=== PATIENT | female | born 1980 | race Caucasian/White ===

== ENCOUNTER → 2018-08-07 09:57 | Outpatient (CLI) | payer BC, SELFPAY ==
--- NOTE | 2018-08-07 10:07 | US_ITS ---
US transvaginal HISTORY: ITS.REASON: US T/V- Heavy Bleeding Fibroids ORDERING PHYSICIAN: Arsenio Oneill MD PATIENT AGE: 38 years Comparison: 10/26/2015 FINDINGS: The uterus measures 10 x 5 x 6 cm with a combined endometrial thickness of 13 mm. There is a small hyperechoic focus in the endometrium superiorly at 9 x 5 mm possibly due to a polyp. There is a 1 cm area of isoechogenicity along the fundus of the uterus consistent with a small fibroid. There is a left ovarian cyst at 16 x 14 mm. There is a large right ovarian cyst at 6 x 5.5 cm and a smaller ovarian cyst on the right at 2 cm. Blood flow is present within the right ovary. No cul-de-sac fluid evident. IMPRESSION: Slightly enlarged uterus with thickened endometrium with possible endometrial polyp and 1 cm uterine fibroid 6 cm simple right ovarian cyst. Recommend follow-up to confirm resolution
== END ==
PROVIDERS: PCP Internal Medicine; Visit Provider Nurse Practitioner Obstetrics & Gynecology
DX: D21.9 Benign neoplasm of connective and other soft tissue, unspecified (principal); N92.0 Excessive and frequent menstruation with regular cycle
CPT/HCPCS: 76830

== ENCOUNTER → 2018-11-05 12:41 | Outpatient (CLI) | payer BC, SELFPAY ==
--- NOTE | 2018-11-05 12:45 | US_ITS ---
US transvaginal HISTORY: ITS.REASON: US T/V- f/u on ovarian cyst ORDERING PHYSICIAN: Arsenio Oneill MD PATIENT AGE: 38 years Comparison: None FINDINGS: Uterus is 9.5 x 4.5 x 5.7 cm. Right ovary is 7.6 x 5.2 x 7.0 cm. Left ovary is 3.2 x 1.9 x 1.6 cm. Endometrial thickness is 1.4 cm. There is no cul-de-sac fluid. There is a subtle hypoechoic focus at the myometrium at the uterine fundus and this measures 1.2 cm without shadowing or acoustic enhancement. Right ovary shows several anechoic foci, largest is 4.6 cm with distal acoustic enhancement and smooth blakely. The smaller lesion measuring 2.3 cm has some internal echoes also with distal acoustic enhancement. There is another right ovarian lesion measuring 2.7 cm. Impression: Possible small uterine fibroid. Several prominent right ovarian cysts, one of which may become chronic hemorrhagic cyst. Because of size suggest follow-up in 6-8 weeks.
== END ==
PROVIDERS: PCP Internal Medicine; Visit Provider Nurse Practitioner Obstetrics & Gynecology
DX: N83.201 Unspecified ovarian cyst, right side (principal)
CPT/HCPCS: 76830

== ENCOUNTER → 2018-11-23 10:52 | Outpatient (CLI) | payer BC, SELFPAY ==
[2018-11-23 11:19] LABS: Basophils # 0.1 K/mm3 (0-0.2); Basophils % 0.8 % (0.1-2.0); Eosinophils # 0.2 K/mm3 (0.0-0.4); Eosinophils % 3.1 % (0.1-12.0); Hematocrit 44.5 % (37.0-47.0); Hemoglobin 14.4 g/dL (12.2-16.2); Lymphocytes # 2.5 K/mm3 (0.7-4.5); Lymphocytes % 37.4 % (10-50); Mean Corpuscular HGB Conc 32.3 g/dL (31.8-35.4); Mean Corpuscular Hemoglobin 27.9 pg (27.0-31.2); Mean Corpuscular Volume 86.4 fl (81-99); Mean Platelet Volume 6.8 fl (7.4-10.4); Monocytes # 0.5 K/mm3 (0.1-1.0); Monocytes % 7.2 % (1.7-9.3); Neutrophils # 3.4 K/mm3 (1.8-7.8); Neutrophils % 51.4 % (37.0-80.0); Platelet Count 340 K/mm3 (142-424); Red Blood Count 5.15 M/mm3 (4.20-5.40); Red Cell Distribution Width 13.1 % (11.5-17.5); White Blood Count 6.6 K/mm3 (4.8-10.8)
[2018-11-23 11:24] LABS: Urine Pregnancy, HCG Qual. Negative (Negative)
[2018-11-23 15:45] LABS: Free Thyroxine Index 2.4 ug/dL (5.93-13.13); T4 (Thyroxine) 7.4 ug/dl (4.7-13.3); Thyroid Stimulating Hormone 4.46 uIU/ml (0.358-3.740); Triiodothryronine (T3) Uptake 33 % (31-39)
== END ==
PROVIDERS: Visit Provider Nurse Practitioner Obstetrics & Gynecology
DX: N92.0 Excessive and frequent menstruation with regular cycle (principal); N94.6 Dysmenorrhea, unspecified
CPT/HCPCS: 36415; 81025; 84436; 84443; 84479; 85025

== ENCOUNTER 2020-05-20 19:01 | Emergency (ER) | payer BC, OTHER, SELFPAY ==
[2020-05-20 19:01] VITALS: BP 160/109; PULSE 114; RESP 21; TEMP 36.7; O2SAT 97; BMI 33.0
--- NOTE | 2020-05-20 19:02 | XR_ITS ---
PROCEDURE: XR KNEE LT 3V CLINICAL INDICATION: fall Posttraumatic pain COMPARISON: CR [id number] KNEE-3 VIEWS-RT from 11/20/[address] KNEE LT WO CON from 05/20/2020 FINDINGS: There are mild osteoarthritic changes of the knee. There is a fluid level suspected on the cross-table lateral view. A mixed sclerotic and lytic lesion is present involving the metaphyseal diaphyseal region with probably benign features measuring 5.9 x 2 cm. Other findings:None. IMPRESSION: Mild osteoarthritis. Fat fluid level in the suprapatellar region suggesting occult fracture. Consider CT for further evaluation. Probably benign mixed lytic and sclerotic lesion of the distal femur laterally at the metaphyseal diaphyseal junction Dictated by: Mert Jimenez MD 05/21/2020 06:22 Mert Jimenez MD in [place] 05/21/2020 06:22
--- NOTE | 2020-05-20 19:02 | XR_ITS ---
PROCEDURE: XR WRIST RT MIN 3V CLINICAL INDICATION: fall Posttraumatic pain COMPARISON: No exams were available for comparison FINDINGS: Nondisplaced fracture involves the base of the ulnar styloid process. There is an additional nondisplaced fracture longitudinal in nature suspected at the distal radius with intra-articular involvement and with buckling of the distal dorsal cortex of the radius. IMPRESSION: Nondisplaced distal radial and ulnar fractures. Dictated by: Mert Jimenez MD 05/21/2020 06:17 Mert Jimenez MD in [place] 05/21/2020 06:17
--- NOTE | 2020-05-20 19:03 | HMH.EDGENADL ---
ED Disposition Condition on Discharge: Fair Time of Disposition: 20:09 - Critical Care Critical Care Time: No <Yvonne Carroll - Last Filed: 05/20/20 20:07> <Kwame Lynch - Last Filed: 05/20/20 21:26> Clinical Impression: Fall Qualifiers: Encounter type: initial encounter Qualified Code(s): W19.XXXA - Unspecified fall, initial encounter Right distal ulnar fracture Qualifiers: Encounter type: initial encounter Fracture type: closed Fracture morphology: other fracture Qualified Code(s): S52.691A - Other fracture of lower end of right ulna, initial encounter for closed fracture Left knee sprain Qualifiers: Encounter type: initial encounter Involved ligament of knee: other ligament Qualified Code(s): S83.8X2A - Sprain of other specified parts of left knee, initial encounter Patellar fracture Qualifiers: Encounter type: initial encounter Fracture type: closed Fracture morphology: unspecified fracture morphology Fracture alignment: nondisplaced Laterality: left Qualified Code(s): S82.002A - Unspecified fracture of left patella, initial encounter for closed fracture Disposition: Home, Self-Care Instructions: DI for Wrist Fracture Additional Instructions: You have been evaluated for fall, wrist fracture and knee sprain. Please keep splint in place until you follow-up with orthopedics. Take Tylenol and ibuprofen for pain. Take [place] for extreme pain. Return to the emergency department if you have any worsening symptoms or numbness, weakness, tingling in your right hand or left foot. Prescriptions: Hydrocodone/Acetaminophen [Hydrocodone-Acetamin 5-325 mg] 1 tab PO Q6 PRN 3 Days #12 tab PRN Reason: Severe Pain Transmission Status: Received by [id number] Referrals: PCP,No [Non-Staff] - Gama De La Rosa MD [Staff Physician] - Attestation: On 05/20/20, the high probability of a clinically significant, sudden or life threatening deterioration of the following system(s) required my full and direct attention, intervention and personal management. The time I documented below is in addition to time spent performing reported procedures but includes the following listed in this critical care notation. Medical Decision Making - Medical Records Medical records reviewed: Yes: I reviewed the patient's medical records. - Maxi Inquiry Pt receiving controlled substance: No <Yvonne Carroll - Last Filed: 05/20/20 20:07> - Radiology Data #1 Image(s): Wrist, Knee Image Reviewed: Yes I reviewed the patient's radiology image Preliminary Findings: Abnormal (fx seen) - CT Data CT Scan: Other (knee) Time Received: 21:[address] Reviewed: Yes: I have viewed the radiologist's interpretation Preliminary Findings: Abnormal (fx patellar ) <Kwame Lynch - Last Filed: 05/20/20 21:26> Vital Signs: 05/20/20 19:01 05/20/20 19:30 05/20/20 20:00 Temperature 98.0 F Temperature Source Oral Pulse Rate [Left Radial] 114 H 117 H 113 H Respiratory Rate 21 22 20 Blood Pressure [Left Arm] 160/109 H 136/91 H 146/98 H Blood Pressure Mean [Left Arm] 126 106 114 Blood Pressure Source [Left Arm] Automatic Cuff Automatic Cuff Automatic Cuff Blood Pressure Position [Left Arm] Supine Supine Supine 02 Sat by Pulse Oximetry 97 94 L 95 Oxygen Delivery Method Room Air Room Air Room Air Orders (Tests/Meds): ED MEDICATIONS Discontinued Medications Generic Name Dose Route Start Last Admin Trade Name Freq PRN Reason Stop Dose Admin Hydrocodone Bitart/Acetaminophen 1 tab 05/20/20 19:26 05/20/20 19:28 Hydrocodone/Apap 5/325 Mg Tablet PO 05/20/20 19:27 Not Given ONCE ONE Oxycodone HCl 5 mg 05/20/20 19:09 05/20/20 19:28 Oxycodone 5mg Immediate Release Tablet PO 05/20/20 19:10 Not Given ONCE ONE Oxycodone/Acetaminophen 1 each 05/20/20 19:27 05/20/20 19:28 Oxycodone 5mg W/Apap 325mg Tablet PO 05/20/20 19:28 1 each ONCE ONE Administration ORDERS Category Date Time Status CT kn
[2020-05-20 19:30] VITALS: BP 136/91; PULSE 117; RESP 22; O2SAT 94
[2020-05-20 20:00] VITALS: BP 146/98; PULSE 113; RESP 20; O2SAT 95
--- NOTE | 2020-05-20 20:00 | CT_ITS ---
PROCEDURE: CT KNEE LT WO CON CLINICAL HISTORY: fall, knee effusion Posttraumatic pain with fat fluid level, evaluate for occult fracture COMPARISON: No exams were available for comparison TECHNIQUE: Axial images obtained with sagittal and coronal reformats. All CT scans at the facility use one or more dose reduction, viz: automated exposure control, ma/kV adjustment per patient size (including targeted exams where dose is matched to indication, i.e. head), or iterative reconstruction technique. FINDINGS: Avulsion fracture involves the medial aspect of the patella. The avulsed medial fracture fragment is slightly displaced posteriorly by approximately 8-9 mm. There is mild lateral patellar subluxation. Soft tissue edema is noted in the region of the medial patellofemoral ligament. Hemarthrosis is noted. In addition, there is a small calcific density along the lateral aspect of the knee joint effusion suggesting a loose body. Osteoarthritic changes are present involving all 3 compartments. There is a mixed lytic and sclerotic lesion eccentrically located within the lateral femoral metaphyseal diaphyseal junction. This is well-circumscribed measuring 5 cm cephalad caudad and 2.2 cm transverse. There is mild edema in Hoffa's fat pad and mild subcutaneous edema noted. IMPRESSION: 1. Avulsion fracture of the medial aspect of the patella with lateral patellar subluxation and with hemarthrosis noted. 2. Edema along the medial patellofemoral ligament which could be related to ligamentous injury. 3. Osteoarthritic change. 4. Mixed sclerotic and lytic bone lesion of the distal femur at the diaphyseal metaphyseal junction having benign features. Follow-up suggested to confirm stability. Dictated by: Mert Jimenez MD 05/21/2020 09:11 Mert Jimenez MD in [place] 05/21/2020 09:11
--- NOTE | 2020-05-20 20:04 | XR_ITS ---
PROCEDURE: XR FOREARM RT 2V CLINICAL INDICATION: fall Posttraumatic pain COMPARISON: CR XR WRIST RT MIN 3V from 05/20/2020 FINDINGS: Nondisplaced fracture involves the base of ulnar styloid process. There also appears be a nondisplaced fracture involving the distal aspect of the radius longitudinal in nature with intra-articular extension along with buckling of the dorsal cortex of the distal radius.. The proximal mid aspect of the radius and ulna have an unremarkable appearance The joint spaces are well-preserved. No significant degenerative/arthritic changes. No erosive changes evident. Other findings:None. IMPRESSION: Nondisplaced distal radial and ulnar fractures Dictated by: Mert Jimenez MD 05/21/2020 06:15 Mert Jimenez MD in [place] 05/21/2020 06:15
[2020-05-20 20:37] VITALS: BP 135/79; PULSE 101; RESP 20; TEMP 36.6; O2SAT 97
--- NOTE | 2020-05-20 22:28 | PC.NURSE ---
Splint placed to lower forearm per Dr Chambers instructions, pt tolerated well
== END 2020-05-20 21:00 | disposition home or self-care (01) ==
PROVIDERS: Emergency Provider Emergency Medicine; PCP Internal Medicine
DX: S82.002A Unspecified fracture of left patella, initial encounter for closed fracture (principal); S52.691A Other fracture of lower end of right ulna, initial encounter for closed fracture; S52.501A Unspecified fracture of the lower end of right radius, initial encounter for closed fracture; W01.0XXA Fall on same level from slipping, tripping and stumbling without subsequent striking against object, initial encounter; Y92.010 Kitchen of single-family (private) house as the place of occurrence of the external cause
CPT/HCPCS: 29125; 73090; 73110; 73562; 73700; 99283

== ENCOUNTER → 2020-05-22 16:40 | Outpatient (CLI) | payer BC, OTHER, SELFPAY ==
--- NOTE | 2020-05-22 16:40 | MR_ITS ---
PROCEDURE: MR KNEE LT WO CON CLINICAL INDICATION: left patella fx, patellofemoral ligament injury Some small scar she COMPARISON: CT CT KNEE LT WO CON from 05/20/2020 TECHNIQUE: Routine multiplanar multi echo sequences are performed without gadolinium enhancement. FINDINGS: The cruciate ligaments are intact. No meniscal tear is evident. The collateral ligaments appear intact. The patellar tendon and quadriceps tendon also appear intact. There is a large knee joint effusion. There is avulsion fracture of the medial aspect of the patella. This is well demonstrated on the CT scan of 05/20/2020. The patella is subluxed laterally. There is disruption of the medial patellar femoral ligament at its patellar insertion. There is increased T2 signal along the lateral aspect of the distal femur which could be due to patellar dislocation with impaction injury. Osteoarthritic changes are present at the medial lateral compartment and there is some spurring of the posterior aspect of the patella. There is minimal thinning of the patellar cartilage. There is a mixed lytic and sclerotic lesion of the distal femur at the diaphyseal metaphyseal junction laterally. This is not well delineated by MRI. There is some cystic change at this region with a cystic area measuring 8 mm with some sclerosis also noted with some intramedullary fat present as well. This is better delineated by CT. There is generalized subcutaneous edema IMPRESSION: 1. There is tear the medial patellofemoral ligament with lateral subluxation of the patella. Prior avulsion injury noted involving the medial aspect of the patella. 2. Bone marrow edema of the lateral aspect of the lateral femoral condyle and may be due to prior impaction injury from patellar dislocation 3. Large knee joint effusion. 4. Possibly benign lesion of the distal femur better delineated with CT. Follow-up CT suggested for confirmation of stability Dictated by: Mert Jimenez MD 05/23/2020 12:46 Mert Jimenez MD in [place] 05/23/2020 12:46
== END ==
PROVIDERS: PCP Internal Medicine; Visit Provider Orthopaedic Surgery
DX: S52.691A Other fracture of lower end of right ulna, initial encounter for closed fracture (principal); W19.XXXA Unspecified fall, initial encounter
CPT/HCPCS: 73721

== ENCOUNTER → 2020-05-26 12:23 | Outpatient (CLI) | payer BC, SELFPAY ==
--- NOTE | 2020-05-26 12:27 | XR_ITS ---
PROCEDURE: XR WRIST RT MIN 3V CLINICAL INDICATION: right wrist fx, fu in cast Follow-up fracture COMPARISON: CR XR WRIST RT MIN 3V from 05/20/2020 CR XR FOREARM RT 2V from 05/20/2020 FINDINGS: Cast has been placed. There is good alignment of the nondisplaced fracture involving the ulnar styloid process and the distal radius. The joint spaces are well-preserved. No significant degenerative/arthritic changes. No erosive changes evident. Other findings:None. IMPRESSION: Good alignment status post cast placement distal radial and ulnar fractures Dictated by: Mert Jimenez MD 05/26/2020 18:42 Mert Jimenez MD in [place] 05/26/2020 18:42
== END ==
PROVIDERS: PCP Internal Medicine; Visit Provider Orthopaedic Surgery
DX: S52.601A Unspecified fracture of lower end of right ulna, initial encounter for closed fracture (principal)
CPT/HCPCS: 73110

== ENCOUNTER → 2020-05-26 14:31 | Outpatient (CLI) | payer BC, OTHER, SELFPAY ==
[2020-05-26 15:18] LABS: Basophils # 0.1 K/mm3 (0-0.2); Basophils % 0.7 % (0.1-2.0); Eosinophils # 0.3 K/mm3 (0.0-0.4); Hematocrit 49.5 % (37.0-47.0); Hemoglobin 16.4 g/dL (12.2-16.2); Lymphocytes # 2.2 K/mm3 (0.7-4.5); Mean Corpuscular HGB Conc 33.1 g/dL (31.8-35.4); Mean Corpuscular Hemoglobin 31.6 pg (27.0-31.2); Mean Corpuscular Volume 95.5 fl (81-99); Mean Platelet Volume 7.8 fl (7.4-10.4); Monocytes # 0.3 K/mm3 (0.1-1.0); Monocytes % 5.2 % (1.7-9.3); Neutrophils # 3.7 K/mm3 (1.8-7.8); Neutrophils % 57.1 % (37.0-80.0); Platelet Count 298 K/mm3 (142-424); Red Blood Count 5.19 M/mm3 (4.20-5.40); Red Cell Distribution Width 13.7 % (11.5-17.5); White Blood Count 6.5 K/mm3 (4.8-10.8)
[2020-05-26 16:02] LABS: Alanine Aminotransferase 33 U/L (12-78); Albumin Level 4.3 g/dl (3.5-5.0); Alkaline Phosphatase 99 U/L (38-126); Anion Gap 14.6 mEq/L (5-15); Aspartate Amino Transferase 27 U/L (14-36); Bilirubin,Total 0.6 mg/dl (0.2-1.3); Blood Urea Nitrogen 16 mg/dl (7-17); Calcium 10.1 mg/dl (8.4-10.2); Carbon Dioxide 24 mmol/L (22.0-30.0); Chloride 98 mmol/L (98-107); Estimated Glomerular Filt Rate 79 ml/min (>60); GFR (African American) 96 ML/MIN (>60); Potassium 4.6 mmoL/L (3.5-5.1); Sodium 132 mmol/L (136-145)
[2020-05-26 16:04] LABS: Albumin/Globulin Ratio 1.3 (1.1-1.8); Globulin 3.3 g/dL (1.3-3.2); Total Protein,Serum 7.6 g/dl (6.3-8.2)
[2020-05-26 16:11] LABS: Glucose 506 mg/dl (74-100)
[2020-05-26 16:14] LABS: Coronavirus 19 IgG Antibody Negative (Negative); Coronavirus 19 IgM Antibody Negative (Negative)
[2020-05-27 10:46] LABS: Hemoglobin A1C 12.1 % (4.0-6.0)
== END ==
PROVIDERS: Visit Provider Orthopaedic Surgery
DX: Z01.812 Encounter for preprocedural laboratory examination (principal); Z11.52 Encounter for screening for COVID-19; S52.601A Unspecified fracture of lower end of right ulna, initial encounter for closed fracture
CPT/HCPCS: 36415; 80053; 83036; 85025; 86328

== ENCOUNTER → 2020-05-30 12:35 | Outpatient (CLI) | payer BC, SELFPAY ==
[2020-05-30 15:09] LABS: Coronavirus 19 IgG Antibody Negative (Negative); Coronavirus 19 IgM Antibody Negative (Negative)
[2020-06-01 09:02] LABS: HCG Qualitative, Serum Negative (Negative)
== END ==
PROVIDERS: Visit Provider Orthopaedic Surgery
DX: Z01.812 Encounter for preprocedural laboratory examination (principal); Z11.52 Encounter for screening for COVID-19; S82.002A Unspecified fracture of left patella, initial encounter for closed fracture; S76.112A Strain of left quadriceps muscle, fascia and tendon, initial encounter; W19.XXXA Unspecified fall, initial encounter
CPT/HCPCS: 36415; 84703; 86328

== ENCOUNTER 2020-06-01 07:29 | Day surgery (SDC) | payer BC, OTHER, SELFPAY ==
[2020-05-26 10:16] VITALS: BMI 33.0
[2020-06-01] VITALS (15 sets, daily range): BP systolic 109–158; BP diastolic 64–98; PULSE 92–119; RESP 10–18; TEMP 36.6–43; O2SAT 92–99
[2020-06-01 07:59] LABS: POC Glucose,Bedside 213 (70-110)
--- NOTE | 2020-06-01 08:02 | P.PN_ITS ---
[facility] Anesthesia Checklist - Structural Data Admitted From: Home Planned Operative Procedure/s: knee arthro Consent for Planned Operative Procedure(s) Verified: Yes - Additional verifications Anesthesia Reactions: No Hx Blood Transfusions: No Blood Transfusion Reaction: No - Airway Assessment C-Spine Mobility Assessed: Yes TMJ Mobility Assessed: Yes Dentition: Poor Dentition - Neurological Assessment Level of Consciousness: Awake, Alert, Appropriate - Anesthesia Plan Anesthesia Risk discussed: Yes Anesthesia Plan: Verified ASA Class: III Anesthesia Type: General [facility] History I have reviewed the patient's past medical history: Yes Medical History: Denies:: Cancer, Diabetes Mellitus Type 1, Diabetes Mellitus Type 2, Internal Pacemaker, MRSA, Seizures *Have you ever received a pneumonia vaccine?: No *Have you received a flu vaccine this season?: No Other Medical History: Denies: Blood Transfusion Reaction Anesthesia experience/problems:: none Laterality Cases: Right: Arthroscopy Knee Other Surgeries: Yes: , Tubal Ligation. No: Pacemaker Amputation: No Fractures: No - *Social History Last grade of school completed: High school graduate Smoking Status: Never smoker # Packs/Day (cigarettes): 1 Alcohol Intake: never Alcohol Intake Frequency:: holidays/special occasions only Substance Use Type: denies use *Occupational Status:: employed Housing: house Household Members: family *Travel in the last 8 weeks: Inside the [place] Family Hx:: Cancer, Diabetes, Hypertension DISTRIBUTION MANAGER history: Tubal Ligation
[2020-06-01 08:14] LABS: Anion Gap 15.5 mEq/L (5-15); Blood Urea Nitrogen 17 mg/dl (7-17); Calcium 9.7 mg/dl (8.4-10.2); Carbon Dioxide 23 mmol/L (22.0-30.0); Chloride 105 mmol/L (98-107); Creatinine Clearance Estimated 174 mL/min (50-200); Estimated Glomerular Filt Rate 92 ml/min (>60); GFR (African American) 112 ML/MIN (>60); Glucose 230 mg/dl (74-100); Potassium 4.5 mmoL/L (3.5-5.1); Sodium 139 mmol/L (136-145)
--- NOTE | 2020-06-01 12:19 | HMH.ANESI ---
[facility] Anesthesia Record Part I Intake, IV Amount: 1,800 Estimated blood loss (mL): 5 Urine output (mL): 0 Blood Pressure: 109/87 SaO2: 99 Pulse Rate: 98 Respiratory Rate: 10 Temperature: 98.7 F Patient is:: Awake, Stable Stable to PACU at:: 12:10
[2020-06-01 12:33] LABS: POC Glucose,Bedside 254 (70-110)
--- NOTE | 2020-06-01 13:23 | PC.NURSE ---
1219-pt becoming more awake at this time, breathing effort improving, O2 sats stable on 8L via simple mask, ls becoming more clear, vss, will continue to monitor 1224-checked fsbs with results of 254, notified MEAGHAN Jung, no further orders given at this time
--- NOTE | 2020-06-01 13:31 | PC.NURSE ---
1237-pt reports c/o nausea after being medicated for pain-med per eMAR with Zofran 4mg IVP, placed cool washcloths on forehead, will continue to monitor. Ancef 1gm IVPB started infusing at this time for additional dose as ordered per Dr. De La Rosa. 1250-Pt dozing off to sleep, will arouse with verbal stimuli, reports pain easing and rates 4-5/10 unless moving around, pt reports nausea is easing a little at this time, no vomiting noted, vss, pt stable, detailed report called to TanyaRN 1257-pt transported to post op via stretcher w/sheila rails up, pt left in care of MICHAEL Castillo-detailed report given at bedside, upon transfer pt's nausea worsened-attempted sarah mist to ease nause w/out sucess, notified MEAGHAN Jung who ordered for patient to have once time dose phenergan 12.5mg IVPB, notified MICHAEL Castilol of of new orders who will be assuming care of pt at this time, pt's vss, pt stable
--- NOTE | 2020-06-01 20:02 | HMH.OPNOTE ---
Date of procedure: 06/01/20 Pre-op Diagnosis:: 1. Avulsion fracture medial patella, LEFT knee 2. MPFL and medial retinacular tear, LEFT knee 3. Osteoarthritis, LEFT knee Post-op Diagnosis:: 1. Avulsion fracture medial edge of patella, LEFT knee 2. MPFL and medial retinacular tear, LEFT knee 3. Osteoarthritis, LEFT knee 4. Degenerate letter meniscal tear, LEFT knee Procedure performed:: 1. Examination of LEFT knee under anesthesia 2. Partial lateral meniscectomy, LEFT knee 3. Chondroplasty, LEFT knee 4. Arthroscopic microfracture, lateral femoral condyle, LEFT knee 5. Open repair of medial patellofemoral ligament and medial retinaculum, LEFT knee Surgeon:: Gama De La Rosa MD Art Model(s):: Alexa Hoover LEGAL RECORDS MANAGER:: Lee Frazier Anesthesia: LMA Estimated blood loss (mL): 5 Clinical Note:: The patient is a 40-year-old female with left knee injury sustained when she slipped and fell in the house landing on her right wrist and twisting/hitting her left knee on the floor. She is being treated nonoperatively for her right distal radius fracture. She states she previously dislocated her left patella about 6-7 years ago and was treated non operatively in a brace and physical therapy. She has history of psoriasis and psoriatic arthritis. She says she had intra-articular injections into the knee a couple of times with the last injection being over a year ago. CT scan of the knee showed - 1. Avulsion fracture of the medial aspect of the patella with lateral patellar subluxation and with hemarthrosis noted. 2. Edema along the medial patellofemoral ligament which could be related to ligamentous injury. 3. Osteoarthritic change. 4. Mixed sclerotic and lytic bone lesion of the distal femur at the diaphyseal metaphyseal junction having benign features. Follow-up suggested to confirm stability. MRI scan of the knee showed- IMPRESSION: 1. There is tear the medial patellofemoral ligament with lateral subluxation of the patella. Prior avulsion injury noted involving the medial aspect of the patella. 2. Bone marrow edema of the lateral aspect of the lateral femoral condyle and may be due to prior impaction injury from patellar dislocation 3. Large knee joint effusion. 4. Possibly benign lesion of the distal femur better delineated with CT. Follow-up CT suggested for confirmation of stability Clinically her symptoms are consistent with the above diagnosis. The surgical options discussed for her knee including left knee arthroscopy, repair of the medial patellofemoral ligament and medial patellar retinaculum with removal/fixation of the avulsed bone fragments as appropriate at the time of surgery.the surgery is indicated to relieve the pain and improve function of the knee. Patient wished to proceed with the surgery as discussed. Please refer to my office notes for full details. Operative findings:: Examination of the left knee under anesthesia, showed a stable knee joint. There is moderate amount of hemarthrosis. Knee range of motion is from 0-110? of flexion. Operative findings showed diffuse grade 2 degenerative changes over the patellofemoral compartment. In addition, focal grade 4 changes were noted over the lateral aspect of the trochlea. There is a lateral meniscal tear involving the body and posterior horn. The medial and lateral compartment articular surfaces are relatively well preserved. Avulsion fracture of the medial edge of the patella was noted with lateral subluxation of the patella. The medial meniscus is noted to be intact.The anterior cruciate ligament and posterior cruciate ligaments are intact. No loose bodies were noted. Moderate synovitis was noted in the knee. Operative note:: On the day of the procedure the patient was met in the preoperative area and positively identified. A physical examination was performed and documented. The operative site and side was marked and initialed by me. I again discussed the diagnosis, management
--- NOTE | 2020-06-04 10:41 | P.PN_ITS ---
[facility] Anesthesia Record Part II Discharge Time: 12:40 [facility] nurse assessment reviewed?: Yes Patient Condition:: Good Anesthesia Complications:: None Swallowing reflex intact?: Yes Cyanosis?: No Blood Pressure: 142/98 Pulse Rate: 113 Temperature: 98.0 F Mental Status: Alert & Oriented Pain level:: 7 Nausea and/or vomitting:: None Intake, IV Amount: 1,500
[2020-06-04 10:42] VITALS: BP 142/98; PULSE 113; TEMP 36.7
== END 2020-06-01 14:25 | disposition home or self-care (01) ==
PROVIDERS: PCP Internal Medicine; Visit Provider Orthopaedic Surgery
PROC: (CPT 29870; principal; 2020-06-01 09:00)
DX: S82.091A Other fracture of right patella, initial encounter for closed fracture (principal); S76.112A Strain of left quadriceps muscle, fascia and tendon, initial encounter; W01.0XXA Fall on same level from slipping, tripping and stumbling without subsequent striking against object, initial encounter; Y92.019 Unspecified place in single-family (private) house as the place of occurrence of the external cause; S83.242A Other tear of medial meniscus, current injury, left knee, initial encounter; S52.501D Unspecified fracture of the lower end of right radius, subsequent encounter for closed fracture with routine healing; S52.611D Displaced fracture of right ulna styloid process, subsequent encounter for closed fracture with routine healing
CPT/HCPCS: 29881; 80048; 82962; 96374; C1713; J2405

== ENCOUNTER → 2020-06-10 10:20 | Outpatient (CLI) | payer BC, OTHER, SELFPAY ==
--- NOTE | 2020-06-10 10:24 | XR_ITS ---
PROCEDURE: XR WRIST RT MIN 3V Referring Doctor: Gama De La Rosa Patient Age:40Y CLINICAL INDICATION: right wrist fx/ xrays in cast Fiberglass cast in place. COMPARISON: CR XR WRIST RT MIN 3V from 05/20/2020 CR XR WRIST RT MIN 3V from 05/26/2020 FINDINGS: Right wrist view AP lateral and oblique fiberglass cast in place slightly obscuring osseous detail but there appears to be good alignment and stable position with slight progressing healing at the fracture involving the ulnar styloid and distal radius.. The joint spaces are well preserved normal carpal relationships; IMPRESSION: Healing fractures distal radius and ulna. Stable satisfactory position with early healing likely. Fiberglass cast in place Dictated by: Satish Mccarthy MD 06/10/2020 14:11 Satish Mccarthy MD in [place] 06/10/2020 14:11
== END ==
PROVIDERS: PCP Internal Medicine; Visit Provider Orthopaedic Surgery
DX: S52.601A Unspecified fracture of lower end of right ulna, initial encounter for closed fracture (principal)
CPT/HCPCS: 73110

== ENCOUNTER 2020-06-17 14:48 | Outpatient (RCR) | payer BC, OTHER, SELFPAY | END 2020-06-17 15:10 | disposition home or self-care (01) | LOC: PT 14:48 | PROVIDERS: Visit Provider Orthopaedic Surgery | DX: S82.002D Unspecified fracture of left patella, subsequent encounter for closed fracture with routine healing (principal); S76.112D Strain of left quadriceps muscle, fascia and tendon, subsequent encounter; W19.XXXA Unspecified fall, initial encounter | CPT/HCPCS: 97760 ==

== ENCOUNTER 2020-06-19 09:00 | Outpatient (RCR) | payer BC, SELFPAY ==
--- NOTE | 2020-06-16 12:03 | HMH.PTOPEV ---
PT Outpatient Evaluation Rehab PT Outpatient Evaluation Start: 06/16/20 11:34 Freq: Status: Active Protocol: Document 06/16/20 11:34 ODESSA (Rec: 06/16/20 12:03 ODESSA [id number]) Electronically Signed By Sergio Max, PT 06/16/20 11:34 Outpatient Therapy Subjective History Subjective History Pt presents s/p L knee medial patella-femoral repair on 06/01 from fall injury on 05/20/20 . Pt reports fall caused L knee patellar dislocation w/fx . Pt reports limited L knee ROM since sx. d/t immobilizer on LLE, and pt. exhibits fear avoidance behavior and verbiage related to L knee. Chief Complaint Pain,Stiff,Weakness Symptom Type Ache,Sharp,Dull,Stabbing Symptoms Relieved By Rest/Positioning,Ice Symptoms Aggravated By Standing,Walking Prior Functional Limitations None Current Functional Limitations Driving,Standing,Squatting, Walking,Stairs Symptom Description Constant but Variable Level of pain today (0-10) 3 Pain scale - at its best (0-10) 2 Pain scale - at its worst (0-10) 9 Hip/Knee Eval Gait Observation General Gait Pattern Observation Antalgic Gait,Decrease Weight Bear (L),Decrease Stride Lngth (L) Assistive Device Assistive Devices Straight Cane Palpation Tenderness left Knee Palpation Finding Tenderness Knee Palpation Overall Comment medial jt line 2-3/4 MMT Hip Flexion Strength Grade 3+ Fair+ Hip Abduction Strength Grade 3+ Fair+ Hip Adduction Strength Grade 3+ Fair+ Hip Extension Strength Grade 3+ Fair+ Knee Extension Strength Grade 3- Fair- Knee Flexion Strength Grade 3- Fair- ROM Knee Extension Active Range of Motion ( +8-30 degrees) Knee Extension Passive Range of Motion ( +5-40 degrees) Knee ROM Limitations Soft Tissue Tightness,Pain Effusion joint effusion knee exam standard left Mid - Patellar Circumerential Measure ( 42.5 cm) Outpatient Therapy Assessment Impairments Problems/Impairmments Palpation Tenderness,Impaired Range of Motion,Impaired Strength,Impaired Gait Pattern ,Impaired Walking,Impaired Standing,Impaired Driving, Impaired Stair Climbing, Impaired Squatting,Increased Ed
== END 2020-06-19 09:05 | disposition home or self-care (01) ==
LOC: PT 09:00
PROVIDERS: PCP Internal Medicine; Visit Provider Orthopaedic Surgery
DX: S82.002A Unspecified fracture of left patella, initial encounter for closed fracture (principal); S76.112A Strain of left quadriceps muscle, fascia and tendon, initial encounter; S52.501A Unspecified fracture of the lower end of right radius, initial encounter for closed fracture; S52.611A Displaced fracture of right ulna styloid process, initial encounter for closed fracture
CPT/HCPCS: 97010; 97014; 97016; 97110; 97140; 97163; G0283

== ENCOUNTER → 2020-06-23 13:01 | Outpatient (CLI) | payer BC, OTHER, SELFPAY ==
--- NOTE | 2020-06-23 13:06 | XR_ITS ---
PROCEDURE: XR WRIST RT MIN 3V CLINICAL INDICATION: right wrist fx; OUT OF CAST Follow-up fracture COMPARISON: CR XR WRIST RT MIN 3V from 05/20/2020 CR XR WRIST RT MIN 3V from 05/26/2020 DX XR WRIST RT MIN 3V from 06/10/2020 FINDINGS: The cast has been removed. There is osteopenia of the distal radius laterally. Faint fracture line noted in the central aspect of the distal radius at the articular surface once again noted. The fracture line at the ulnar styloid process is less apparent. IMPRESSION: Interval cast removal. Persistent fracture line at the distal radius unchanged. Healing ulnar styloid process fracture. Dictated by: Mert Jimenez MD 06/23/2020 14:47 Mert Jimenez MD in [place] 06/23/2020 14:47
== END ==
PROVIDERS: PCP Internal Medicine; Visit Provider Orthopaedic Surgery
DX: S52.601A Unspecified fracture of lower end of right ulna, initial encounter for closed fracture (principal)
CPT/HCPCS: 73110

== ENCOUNTER 2020-06-23 14:09 | Outpatient (RCR) | payer BC, SELFPAY | END 2020-06-23 14:49 | disposition home or self-care (01) | LOC: OT 14:09 | PROVIDERS: Visit Provider Orthopaedic Surgery | DX: S52.601A Unspecified fracture of lower end of right ulna, initial encounter for closed fracture (principal) | CPT/HCPCS: 97763 ==

== ENCOUNTER → 2020-07-29 12:42 | Outpatient (CLI) | payer BC, SELFPAY ==
--- NOTE | 2020-07-29 12:46 | XR_ITS ---
PROCEDURE: XR KNEE LT 3V CLINICAL INDICATION: left knee pain COMPARISON: CR [id number] KNEE-3 VIEWS-RT from 11/20/[address] KNEE LT WO CON from 05/20/2020 CR XR KNEE LT 3V from 05/20/2020 FINDINGS: Follow-up surgery with limited range of motion. No fracture or dislocation apparent. Minimal osteoarthritic changes are present at the patellofemoral joint. There is a sclerotic cortical lesion involving the proximal tibia medially and may be due to a bone island at 2.2 x 0.6 cm. A mixed sclerotic and lytic lesion is once again noted involving the distal femur laterally probably not significantly changed. Continued follow-up is suggested. There is a small suprapatellar effusion. Other findings:None. IMPRESSION: Overall no significant change. No acute finding. Mixed lytic and blastic lesion of the distal femur. Continued follow-up suggested to confirm stability. Sclerotic lesion of the proximal tibia which may be due to a bone island Dictated by: Mert Jimenez MD 07/29/2020 13:18 Mert Jimenez MD in [place] 07/29/2020 13:18
== END ==
PROVIDERS: PCP Internal Medicine; Visit Provider Orthopaedic Surgery
DX: M25.562 Pain in left knee (principal)
CPT/HCPCS: 73562

== ENCOUNTER → 2020-12-15 16:48 | Outpatient (CLI) | payer BC, OTHER, SELFPAY ==
[2020-12-15 18:43] LABS: Anion Gap 14.8 mEq/L (5-15); Blood Urea Nitrogen 16 mg/dl (7-17); Calcium 9.7 mg/dl (8.4-10.2); Carbon Dioxide 30 mmol/L (22.0-30.0); Chloride 99 mmol/L (98-107); Estimated Glomerular Filt Rate 61 ml/min (>60); GFR (African American) 74 ML/MIN (>60); Glucose 130 mg/dl (74-100); Potassium 3.8 mmoL/L (3.5-5.1); Sodium 140 mmol/L (136-145)
== END ==
PROVIDERS: Visit Provider Internal Medicine
DX: E11.9 Type 2 diabetes mellitus without complications (principal); Z79.84 Long term (current) use of oral hypoglycemic drugs
CPT/HCPCS: 36415; 80048

== ENCOUNTER → 2021-02-13 18:31 | Outpatient (CLI) | payer BC, OTHER, SELFPAY | PROVIDERS: PCP Nurse Practitioner Family; Visit Provider Nurse Practitioner Family | DX: Z20.822 Contact with and (suspected) exposure to COVID-19 (principal) | CPT/HCPCS: C9803; U0003; U0005 ==

== ENCOUNTER → 2021-02-15 12:02 | Outpatient (CLI) | payer BC, OTHER, SELFPAY | PROVIDERS: PCP Internal Medicine; Visit Provider Nurse Practitioner | DX: Z20.822 Contact with and (suspected) exposure to COVID-19 (principal) | CPT/HCPCS: C9803; U0003; U0005 ==

== ENCOUNTER → 2021-02-18 16:15 | Outpatient (CLI) | payer BC, OTHER, SELFPAY | PROVIDERS: PCP Internal Medicine; Visit Provider Nurse Practitioner | DX: Z20.822 Contact with and (suspected) exposure to COVID-19 (principal) | CPT/HCPCS: C9803; U0003; U0005 ==

== ENCOUNTER → 2021-04-26 12:38 | Outpatient (CLI) | payer BC, OTHER, SELFPAY ==
--- NOTE | 2021-04-26 12:38 | MM_ITS ---
PROCEDURE INFORMATION: Exam: MG Bilateral Screening 3D Mammography Exam date and time: 04/26/2021 12:38 PM Age: 41 years old Clinical indication: Encounter for screening mammogram for malignant neoplasm of breast TECHNIQUE: Imaging protocol: Bilateral screening tomosynthesis and 2D mammography including computer-aided detection (CAD) when performed. COMPARISON: No relevant prior studies available. FINDINGS: MAMMOGRAPHY: Breast composition: The breast tissue is composed of scattered areas of fibroglandular density. Mass: None. Architectural distortion: None. Calcifications: No suspicious calcifications. Asymmetric density: None. Skin thickening: None. Axillary adenopathy: None. IMPRESSION: No mammographic evidence of malignancy. Annual screening is recommended unless otherwise clinically indicated. ASSESSMENT: BI-RADS Category 1: Negative
== END ==
PROVIDERS: PCP Internal Medicine; Visit Provider Nurse Practitioner Obstetrics & Gynecology
DX: Z12.31 Encounter for screening mammogram for malignant neoplasm of breast (principal)
CPT/HCPCS: 77063; 77067

== ENCOUNTER 2021-06-05 15:49 | Emergency (ER) | payer BC, OTHER, SELFPAY ==
[2021-06-05 16:04] VITALS: BP 148/91; PULSE 108; RESP 18; TEMP 37; O2SAT 97; BMI 36.0
--- NOTE | 2021-06-05 16:07 | HMH.EDUTC ---
[facility] Disposition Clinical Impression: Upper respiratory infection, viral, COVID Disposition: Home, Self-Care Condition on Discharge: Good Instructions: DI for COVID-19 (Suspected or Confirmed ) Additional Instructions: covid swab was sent to lab, call tomorrow for results. self isolate until test results are known to be negative No sign of a bacterial infection. Likely viral. Viruses can take 7-14 days to run their course. Nasal saline and bulb syringe or nose Stephanie to remove nasal drainage to help with nasal congestion. Hard to eat, drink, sleep with nasal congestion so important to keep this cleaned out. Monitor temp. Tylenol or Motrin as needed for pain or fever Encourage fluids, water, Gatorade, Powerade, Pedialyte if infant/toddler/child Warm salt water gargles Warm fluids Sore throat lozenges Sleep elevated Humidifier/vaporizer Follow-up immediately for new or worsening symptoms or no noticeable improvement over the next 48-72 hours. Referrals: Vishnu Ridlde [Primary Care Provider] - Time of Disposition: 16:10 Medical Decision Making - Maxi Inquiry Pt receiving controlled substance: No Vital Signs: 06/05/21 16:04 Temperature 98.6 F Temperature Source Oral Pulse Rate [Left] 108 H Respiratory Rate 18 Blood Pressure [Right Arm] 148/91 H Blood Pressure Mean [Right Arm] 110 02 Sat by Pulse Oximetry 97 Orders (Tests/Meds): ORDERS Category Date Time Status Covid-19 Nasal PCR ([facility]) Routine Lab 06/05/21 15:58 Ordered [facility] HPI - General Chief complaint: Urgent Treatment Center Stated complaint: covid test Time Seen by Provider: 06/05/21 16:07 Mode of Arrival: Ambulatory Source of Information: Patient Limitations: No Limitations Description of Symptoms (Recalled from Triage Doc. by RN): pt c/o sinus congestion x2 days. covid exposure to majority of her family. HEENT Symptoms (Recalled from RN notes): Yes (sinus congestion) Resp Symptoms (Recalled from RN notes): No Skin Symptoms (Recalled from RN notes): No MS Symptoms (Recalled from RN notes): No Functional Status (Recalled from RN notes): wnl - History of Present Illness Provider Complaint: 41 yr old female presents for c/o clear sinus congestion x2 days. at home covid test positive - Related Data Home Medications Medication Instructions Recorded Confirmed metformin 500 mg tablet,extended ea PO 08/26/20 08/26/20 release 24 hr Allergies Allergy/AdvReac Type Severity Reaction Status Date / Time iodine [IODINE] Allergy Mild Verified 08/26/20 13:43 - Worker's Comp Is this a Worker's Comp case?: No [facility] History - Hepatitis A Screen Drug use history?: No High risk sexual behaviors?: No History of sexually transmitted infection?: No Currently employed?: No Childcare worker?: No Do you have indoor plumbing?: Yes Do you have electricity?: Yes Attestation statement:: This patient has been screened for Hepatitis A risk factors. I have reviewed the patient's past medical history: Yes Medical History: Reports:: Diabetes Mellitus Type 2 Denies:: Cancer, Diabetes Mellitus Type 1, Internal Pacemaker, MRSA, Seizures Other Medical History: Denies: Blood Transfusion Reaction Comment: Blood Clot in Lung 2004 Laterality Cases: Bilateral: Arthroscopy Knee Other Surgeries: Yes: , Tubal Ligation. No: Pacemaker Amputation: No Fractures: No - Social History Smoking Status: Never smoker # Packs/Day (cigarettes): 1 Alcohol Intake: never Alcohol Intake Frequency:: holidays/special occasions only Substance Use Type: denies use Occupational Status: employed Housing: house Household Members: spouse Family Hx:: Diabetes, Hypertension [employer] history: Tubal Ligation ROS Obtained: Yes Systems reviewed as appropriate & no additional complaints - Constitutional Constitutional: Reports system reviewed and no additional complaints, except as docu, Denies fever(s) - Eyes Eyes: Reports system reviewed and no add
[2021-06-05 16:34] VITALS: BP 148/91; PULSE 108; RESP 18; TEMP 37
== END 2021-06-05 16:34 | disposition home or self-care (01) ==
PROVIDERS: Emergency Provider Nurse Practitioner Family; PCP Internal Medicine
DX: U07.1 COVID-19 (principal); J06.9 Acute upper respiratory infection, unspecified; E11.9 Type 2 diabetes mellitus without complications
CPT/HCPCS: 99202; C9803; G0463; U0003; U0005

== ENCOUNTER 2023-03-05 18:50 | Emergency (ER) | payer BC, OTHER, SELFPAY ==
[2023-03-05 18:51] VITALS: BP 143/97; PULSE 102; RESP 18; TEMP 36.8; O2SAT 100; BMI 34.4
--- NOTE | 2023-03-05 19:08 | EXP.UTC ---
Discharge Plan Disposition Patient Disposition: Home, Self-Care Condition: Good Prescriptions Prescriptions: New diphenhydramine HCl [Diphenhydramine HCl] 25 mg capsule 25 mg PO Q6HP PRN (Reason: Itching) Qty: 30 0RF methylprednisolone 4 mg Tablets,Dose Pack 4 mg PO DIRECTED Qty: 21 0RF mupirocin 2 % ointment 1 applic topical TID 7 Days Qty: 15 0RF No Action metformin 500 mg tablet extended release 24 hr 500 ea PO DAILY Patient Comments: TAKE 1 TABLET BY MOUTH TWICE DAILY FOR 2 WEEKS THEN INCREASE TO 2 TABLETS TWICE DAILY THEREAFTER atorvastatin 20 mg tablet 20 mg PO DAILY glyburide 2.5 mg tablet 2.5 mg PO DAILY triamterene-hydrochlorothiazid 37.5-25 mg tablet 1 tab PO DAILY Tremfya 100 mg/mL auto-injector See Rx Instructions .ROUTE .COMPLEX Rx Instructions: 100 mg subcutaneously q 2 months Referrals Follow up/Referrals: Provider,Referral, MD [Primary Care Provider] - See instructions Activity Restrictions/Add. Instructions Additional Instructions/Restrictions: Try to identify and avoid contact with the offending substance (poison alan). Don't start the oral steroids until tomorrow. The diphenhydramine (benedryl) will make you drowsy, so don't drive or operate heavy machinery after taking it. Follow up with your regular doctor. GO TO THE ER FOR ANY WORSENING SYMPTOMS OR CONCERNS Clinical Impressions Clinical Impression: Allergic reaction Instructions Patient Instructions: DI for General Allergic Reactions Discharge ED Provider: Tin Smith [facility] General Stated complaint: rash,burning of the skin on your arms Time Seen by Provider: 03/05/23 19:07 History of Present Illness Provider Complaint: She states that for the past 1 day she has had redness and itching of her forearms, chest, and legs. Related Data Home Medications Medication Instructions Recorded Confirmed metformin 500 mg tablet,extended 500 ea PO DAILY 08/26/20 03/05/23 release 24 hr atorvastatin 20 mg tablet 20 mg PO DAILY 03/05/23 03/05/23 glyburide 2.5 mg tablet 2.5 mg PO DAILY 03/05/23 03/05/23 guselkumab 100 mg/mL subcutaneous See Rx Instructions .Route .COMPLEX 03/05/23 03/05/23 auto-injector (Tremfya) triamterene 37.5 1 tab PO DAILY 03/05/23 03/05/23 mg-hydrochlorothiazide 25 mg tablet Previous Rx's Medication Instructions Recorded diphenhydramine HCl 25 mg capsule 25 mg PO Q6HP PRN Itching #30 caps 03/05/23 methylprednisolone 4 mg tablets in 4 mg PO DIRECTED #21 tabs 03/05/23 a dose pack mupirocin 2 % topical ointment 1 applic topical TID 7 days #15 03/05/23 grams Allergies Allergy/AdvReac Type Severity Reaction Status Date / Time iodine [IODINE] Allergy Mild Verified 03/05/23 19:17 Sulfa (Sulfonamide Allergy Verified 03/05/23 19:17 Antibiotics) [facility] Disclaimer: The information contained in this section may have been updated after the patient was seen, as this information can be updated by other users. Social History Smoking Status: Never smoker second hand exposure: No alcohol intake: never substance use type: denies use current occupational status: employed Travel in the last 8 weeks: None household members: spouse housing: house current occupation: instruction escrow assistant current occupational exposures/hazards: No caffeine: No ROS Obtained: Yes All systems reviewed & no additional complaints except as documented Constitutional Constitutional: Denies chills and Denies fever(s) Eyes Eyes: Denies eye discharge ENT Ears, Nose, Mouth, and Throat: Denies dizziness, Denies otalgia and Denies sore throat Cardiovascular Cardiovascular: Denies chest pain Respiratory Respiratory: Denies shortness of breath, Denies chest congestion, Denies cough, Denies stridor and Denies wheezing Gastrointestinal Gastrointestingal: Denies nausea
[2023-03-05 19:54] VITALS: BP 143/97; PULSE 102; RESP 18; TEMP 36.8; O2SAT 100
== END 2023-03-05 19:51 | disposition home or self-care (01) ==
PROVIDERS: Emergency Provider Nurse Practitioner Family
DX: T78.40XA Allergy, unspecified, initial encounter (principal)
CPT/HCPCS: 96372; 99212; 99214; G0463

== ENCOUNTER 2023-05-01 08:46 | Emergency (ER) | payer BC, SELFPAY ==
[2023-05-01 09:25] VITALS: BP 116/77; PULSE 111; RESP 18; TEMP 36.7; O2SAT 96; BMI 33.0
[2023-05-01 09:42] LABS: UTC Influenza A Antigen Negative (Negative); UTC Influenza B Antigen Negative (Negative); UTC Strep Screen (Rapid) Negative (Negative)
--- NOTE | 2023-05-01 09:48 | EXP.UTC ---
Discharge Plan Disposition Patient Disposition: Home, Self-Care Condition: Good Prescriptions Prescriptions: No Action metformin 500 mg tablet extended release 24 hr 500 ea PO DAILY Patient Comments: TAKE 1 TABLET BY MOUTH TWICE DAILY FOR 2 WEEKS THEN INCREASE TO 2 TABLETS TWICE DAILY THEREAFTER atorvastatin 20 mg tablet 20 mg PO DAILY glyburide 2.5 mg tablet 2.5 mg PO DAILY triamterene-hydrochlorothiazid 37.5-25 mg tablet 1 tab PO DAILY Tremfya 100 mg/mL auto-injector See Rx Instructions .ROUTE .COMPLEX Rx Instructions: 100 mg subcutaneously q 2 months Referrals Follow up/Referrals: Vishnu Riddle MD [Primary Care Provider] - See instructions Activity Restrictions/Add. Instructions Additional Instructions/Restrictions: *Monitor Temp, Over the counter Motrin or Tylenol as directed/as needed Tylenol every 4 hours and Motrin every 6 hours (as long as your family doctor has told you that you can take it) for fever or pain. and straight to ER if unable to lower temp less than 101.0 after medication given *Warm salt water gargles may help to soothe the throat *Throat Lozenges? *Warm fluids like tea with honey may help to soothe the throat? *Sleep elevated *Humidifier/Vaporizer Your throat swab was sent for culture. Those results are typically sent to your primary care. Be sure to follow up in 2-3 days with your family doctor/primary care physician if no improvement so they can review those result and treat if necessary. If you don?t have a primary care doctor, I recommend you get one but in the mean time, you will have to return to a walk in clinic Follow up IMMEDIATELY for new or worsening symptoms or no Noticeable improvement over the next 48-72 hours. 911 for difficulty breathing or swallowing You were tested for today for Upper Respiratory Panel with COVID19 your test result should be back in the next 24hours, you may check your results on the [facility] [employer] [facility] If your COVID test is positive you must Quarantine for 5 days Clinical Impressions Clinical Impression: Viral syndrome Stand Alone Forms Stand Alone Forms: Work/School Release Instructions Patient Instructions: DI for Viral Syndrome Discharge ED Provider: Catina Matias [facility] [place] HPI General Stated complaint: fever, body aches, diarrhea Mode of Arrival: Ambulatory Source of Information: Patient Limitations: No Limitations Time Seen by Provider: 05/01/23 09:48 Description of Symptoms (Recalled from Triage Doc. 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 so today when she wasnt feeling any better she came in in to get checked Related Data Home Medications Medication Instructions Recorded Confirmed metformin 500 mg tablet,extended 500 ea PO DAILY 08/26/20 05/01/23 release 24 hr atorvastatin 20 mg tablet 20 mg PO DAILY 03/05/23 05/01/23 glyburide 2.5 mg tablet 2.5 mg PO DAILY 03/05/23 05/01/23 guselkumab 100 mg/mL subcutaneous See Rx Instructions .Route .COMPLEX 03/05/23 05/01/23 auto-injector (Tremfya) triamterene 37.5 1 tab PO DAILY 03/05/23 05/01/23 mg-hydrochlorothiazide 25 mg tablet Allergies Allergy/AdvReac Type Severity Reaction Status Date / Time iodine [IODINE] Allergy Mild Verified 05/01/23 09:40 Sulfa (Sulfonamide Allergy Verified 05/01/23 09:40 Antibiotics) Worker's Comp Is
[2023-05-01 10:15] VITALS: BP 126/74; PULSE 111; RESP 18; TEMP 36.7; O2SAT 96
== END 2023-05-01 10:15 | disposition home or self-care (01) ==
PROVIDERS: Emergency Provider Nurse Practitioner; PCP Internal Medicine
DX: R50.9 Fever, unspecified (principal); R19.7 Diarrhea, unspecified; R11.0 Nausea; M79.18 Myalgia, other site; B34.9 Viral infection, unspecified
CPT/HCPCS: 87804; 87880; 99212; 99214; G0463